=== PATIENT | male | born 1990 | race African-American/Black ===

== ENCOUNTER 2019-07-07 07:20 | Inpatient (IN) | payer MEDICAID ==
[~2019-07-07] VITALS: Ht 195.6 cm; Wt 113.4 kg
[2019-07-07] MEDS ORDERED: ONDANSETRON HCL 4MG/2ML INJ ONE (09:54)
[2019-07-07] MEDS ORDERED: SODIUM CHLORIDE 0.9% 1,000 ML IV ONE ×2 (10:04→12:19)
[2019-07-07] MEDS ORDERED: KETOROLAC 30MG/ML VIAL IV STA (10:04)
[2019-07-07] MEDS ORDERED: ONDANSETRON HCL 4MG/2ML INJ IV STA (10:04)
[2019-07-07 10:32] LABS: CHLORIDE 104 mEq/L (98-107)
[2019-07-07 10:36] LABS: BASOPHILS % 0.7 % (0.0-2.0); EOSINOPHILS % 2.2 % (0.0-5.0); HEMATOCRIT. 46.1 % (42.0-52.0); HEMOGLOBIN. 15.8 g/dL (14.0-18.0); LYMPHOCYTES % 25.6 % (20.0-50.0); MEAN CORPUSCULAR HEMOGLOBIN 30.7 pg (28.0-32.0); MEAN CORPUSCULAR VOLUME 89.5 fL (80.0-94.0); MEAN PLATELET VOLUME 9.9 fl (7.4-10.4); MONOCYTES % 7.5 % (2.0-8.0); PLATELET 223 x1000/uL (130-400); RED BLOOD CELL COUNT 5.15 mill/uL (4.7-6.1)
[2019-07-07 10:48] LABS: CLARITY URINE CLEAR (CLEAR); COLOR URINE YELLOW (YELLOW); KETONES URINE 2+ (NEGATIVE); LEUKOCYTE ESTERASE URINE TRACE (NEGATIVE); NITRITE URINE NEGATIVE (NEGATIVE); OCCULT BLOOD URINE NEGATIVE (NEGATIVE); PH URINE 8.5 (4.5-8.0); PROTEIN URINE TRACE (NEGATIVE); SPECIFIC GRAVITY URINE 1.026 (1.005-1.030)
[2019-07-07 11:07] LABS: *AMPHETAMINES SCREEN URINE NEGATIVE (NEGATIVE); *BARBITURATES SCREEN URINE NEGATIVE (NEGATIVE); *BENZODIAZEPINES SCREEN URINE NEGATIVE (NEGATIVE)
[2019-07-07 11:08] LABS: *COCAINE SCREEN URINE NEGATIVE (NEGATIVE); CANNABINOID URINE SCREEN NEGATIVE (NEGATIVE); METHADONE URINE SCREEN NEGATIVE (NEGATIVE); OPIATES URINE SCREEN NEGATIVE (NEGATIVE); PHENCYCLIDINE URINE SCREEN NEGATIVE (NEGATIVE)
[2019-07-07 11:12] LABS: ETHANOL BLOOD < 10 mg/dL
[2019-07-07] MEDS ORDERED: FAMOTIDINE 20MG/2ML VIAL IV ONE (11:15)
[2019-07-07] MEDS ORDERED: ONDANSETRON HCL 4MG/2ML INJ IV ONE (11:15)
[2019-07-07] MEDS ORDERED: VISCOUS LIDOCAINE 2% 15 ML UDC PO STA (11:34)
[2019-07-07] MEDS ORDERED: MAGNESIUM/ALUMINUM HYDROXIDE/SIMETHICONE 30ML UDC PO STA (11:34)
[2019-07-07] MEDS ORDERED: METOCLOPRAMIDE HCL 10MG/2ML VIAL IV ONE (12:30)
[2019-07-07] MEDS ORDERED: MORPHINE SULFATE 4 MG/ML CPJ (NOT FOR IM USE) IV ONE (12:45)
[2019-07-07 16:00] VITALS: BP 122/64
[2019-07-07] MEDS: ONDANSETRON HCL 4MG/2ML INJ IV PRN (16:32)
[2019-07-07] MEDS: MORPHINE SULFATE 2 MG/ML CPJ (NOT FOR IM USE) IV PRN ×2 (16:32→23:42)
[2019-07-07] MEDS: METOCLOPRAMIDE HCL 10MG/2ML VIAL IV SCH ×2 (18:03→23:37)
[2019-07-07 18:12] VITALS: BP 121/66
[2019-07-07 20:00] VITALS: BP 147/84
[2019-07-08] VITALS: BP 111/65
[2019-07-08 04:00] VITALS: BP 116/66
[2019-07-08] MEDS: METOCLOPRAMIDE HCL 10MG/2ML VIAL IV SCH (05:20)
[2019-07-08 06:48] LABS: CHLORIDE 107 mEq/L (98-107)
[2019-07-08 06:49] LABS: BASOPHILS % 0.7 % (0.0-2.0); EOSINOPHILS % 0.7 % (0.0-5.0); HEMATOCRIT. 43.8 % (42.0-52.0); LYMPHOCYTES % 28.5 % (20.0-50.0); MEAN CORPUSCULAR HEMOGLOBIN 30.8 pg (28.0-32.0); MEAN CORPUSCULAR VOLUME 89.8 fL (80.0-94.0); MEAN PLATELET VOLUME 9.7 fl (7.4-10.4); MONOCYTES % 7.9 % (2.0-8.0); NEUTROPHILS % 62.2 % (40.0-76.0); PLATELET 206 x1000/uL (130-400); RED BLOOD CELL COUNT 4.88 mill/uL (4.7-6.1); RED CELL DISTRIBUTION WIDTH 12.9 % (11.6-14.6)
[2019-07-08 08:00] VITALS: BP 116/71
[2019-07-08] MEDS: PANTOPRAZOLE SODIUM 40 MG/VIAL IV SCH ×2 (09:00→10:29)
[2019-07-08] MEDS ORDERED: HYDROCODONE/ACETAMINOPHEN 10/325MG TABLET PO PRN (09:15)
[2019-07-08 09:22] VITALS: BP 116/71
[2019-07-08] MEDS: ONDANSETRON HCL 4MG/2ML INJ IV PRN (10:29)
[2019-07-08] MEDS ORDERED: INFLUENZA VIRUS VACCINE(AFLURIA) 0.5ML SYR IM ONE (12:00)
[2019-07-08] MEDS ORDERED: ALPRAZOLAM 0.5 MG TABLET PO SCH (14:00)
== END 2019-07-08 12:07 | disposition left against medical advice (07) | DRG 241 ==
LOC: ER 07:33 → EDBEDREQTM 12:58 → ENRESERV 14:10 → 6EST 14:46
PROVIDERS: ADMIT Internal Medicine; ATTEND Internal Medicine
DX: K29.20 Alcoholic gastritis without bleeding (principal); F17.210 Nicotine dependence, cigarettes, uncomplicated; K52.9 Noninfective gastroenteritis and colitis, unspecified; Z71.6 Tobacco abuse counseling; Z71.41 Alcohol abuse counseling and surveillance of alcoholic
CPT/HCPCS: 36415; 74176; 80048; 80305; 80320; 81003; 99285; C9113; J1885; J2270; J2405; J2765; J3490; J7030; G0480